=== PATIENT | female | born 1945 | race Caucasian/White ===

== ENCOUNTER 2018-09-07 16:59 | Emergency (ER) | payer MEDICARE, OTHER ==
[~2018-09-07] VITALS: Ht 157.5 cm; Wt 69.4 kg
[~2018-09-07 16:59] MED LIST: CEFUROXIME500 MG PO; CHERATUSSIN AC118 ML PO; CLONAZEPAM0.5 MG PO; DOXYCYCLINE HY100 M3 PO; FLUOXETINE HCL20 MG PO; GABAPENTIN100 MG PO; HYDROCHLOROTHIA25 MG PO; LEVOFLOXACIN500 MG PO; LISINOPRIL10 MG PO; METHYLPREDNISOLO4 M1 PO; NORCO 5-325 TA1 EACH PO; PEPCID20 MG PO; PREDNISONE20 MG PO; PROAIR HFA INH8.5 GM INH; SYMBICORT 16010.2 GM INH
--- OUTSIDE RECORDS SUMMARY | 2018-09-07 17:02 | XMS REPORT | Clinical Summary ---
Author Author [facility] Address Unknown Phone Unavailable Care Team Providers Care Deckhand Clam Dredge Name Role Phone Asked, No Pcp PCP Unavailable Allergies Not on File Medications Not on file Active Problems Not on file Social History Date Tobacco Use Types Packs/Day Years Used Never Assessed Sex Assigned at Date Recorded Not on file Industry Job Start Date Occupation Not on file Not on file Not on file Travel End Travel History Travel Start No recent travel history available. Last Filed Vital Signs Not on file Plan of Treatment Health Maintenance Due Date Last Done Comments BREAST CANCER SCREENING 1997 COLON CANCER SCREENING 1997 SHINGRIX VACCINE (1 of 2) 1997 ZOSTER VACCINE 2007 PNEUMOCOCCAL 2012 POLYSACCHARIDE VACCINE AGE 65 AND OVER PNEUMOCOCCAL-13 2012 INFLUENZA VACCINE 05/20/2018 Results Not on fileafter 09/06/2017 Insurance Payer Benefit Subscriber ID Type Phone Address Plan / Group MEDICARE MEDICARE xxxxxxxxxx Medicare [place], [place] PART A AND B [employer] xxxxxxxxxx Commercial [employer] [address] (Home) [address] [place] [address] Advance Directives Patient has advance care planning documents on file. For more information, irene lanier contact: Brent Hdz [address] [place] [address]
[2018-09-07] MEDS ORDERED: SODIUM CHLORIDE 0.9% 1000ML 1,000 ML IV SCH ×2 (17:30→17:45)
== END 2018-09-07 19:05 | disposition home or self-care (01) ==
LOC: FSED 16:59
DX: R11.2 Nausea with vomiting, unspecified (principal); R19.7 Diarrhea, unspecified; I10 Essential (primary) hypertension; E78.5 Hyperlipidemia, unspecified; J44.9 Chronic obstructive pulmonary disease, unspecified; Z87.891 Personal history of nicotine dependence
CPT/HCPCS: 80048; 99283

== ENCOUNTER 2019-11-29 19:00 | Observation (INO) | payer MEDICARE, OTHER ==
[~2019-11-29] VITALS: Ht 154.9 cm; Wt 80.9 kg
--- OUTSIDE RECORDS SUMMARY | 2019-11-29 19:03 | XMS REPORT ---
Author Author [facility] Address Unknown Phone Unavailable Care Team Providers Care Underwriting Support Manager Name Role Phone Unavailable Unavailable Payers Payer Name Policy Type Policy Number Effective Date Expiration Date Problems This patient has no known problems. Allergies, Adverse Reactions, Alerts Allergy Name Allergy Type Status Severity Reaction(s) Onset Date Inactive Date Treating Clinician Comments No Known Allergies DA Active U 2018-12-09 00:00:00 No Known Allergies DA Active U 2018-11-03 00:00:00 Medications This patient has no known medications. Results Test Description Test Time Test Comments Text Results Atomic Results Result Comments BASIC METABOLIC PANEL 2018-12-12 05:44:00 SODIUM (test code=NA) 138 mEq/L 134-147 POTASSIUM (test code=K) 4.1 mEq/L 3.4-5.0 CHLORIDE (test code=CL) 102 mEq/L 100-108 CARBON DIOXIDE (test code=CO2) 31 mEq/L 21-33 ANION GAP (test code=GAP) 9 0-20 GLUCOSE (test code=GLU) 103 mg/dL 70-110 BLOOD UREA NITROGEN (test code=BUN) 18 mg/dL 7-18 GLOMERULAR FILTRATION RATE (test code=GFR) 54.7 70-80 Units of measure=ml/min/1.73 m2 CREATININE (test code=CREAT) 1.0 mg/dL 0.6-1.3 CALCIUM (test code=CA) 8.8 mg/dL 8.0-10.5 - XR CHEST 1 [id number] 16:28:00 FAX: Andrade Morocho [phone] [place]: St: ADM FAX: Aleksandr Canales MD [phone] FAX: Tha Sheets DO [phone] Name: [facility]IN [facility] : 1945 Age/S: 73/F [address] [place] [address] Blvd Unit #: [id number] Loc: G.[address] [place] [address] Phys: Andrade Spencer MD Acct: [id number] Dis Date: Status: ADM IN ONE #: [phone] Exam Date: 12/11/2018 1614 FAX #: [phone] Reason: dyspnea EXAMS: CPT CODE: [id number] XR CHEST 1 V 87629 Clinical Indic ation: dyspnea Comparison: None FINDINGS: The frontal chest radiograph shows normal lung volumes. Bilateral peribronch ial cuffing is present. Diffuse opacity is seen in the lower lungs. No p neumothorax is present. The heart is normal in size. The trachea i s midline. There are no clinically significant osseous abnormalit ies noted. IMPRESSION: 1. Bilateral peribronchial cuffi ng, can be seen with small airway disease. 2. Diffuse opacity in the lower lungs. Differential includes pulmonary edema, atelectasis and focal consolidation. SL: [id number] at 5287 Reported and signed by: Kade Carr M.D. CC: Andrade Oconnor MD; Aleksandr Canales MD; Tha Sheets DO Technologist: More Douglas, RT(R ); Cris Zuñiga, RT(R), RTT Trnnhrd Date/Time/By: 12/11/2018 (0570) : By: [email or web address] Orig Print D/T: S: 12/11/2018 (8578) PAGE 1 Signed Report COAGULATION TIME [id number] 13:08:00* Test Item Value Reference Range Comments COAGULATION TIME ACTIVATED (test code=ACT) 280 SECONDS 105-167 - XR CHEST 2 [id number] 12:11:00 FAX: Aleksandr Canales MD [phone] [place]: St: PRE FAX: Tha Sheets DO [phone] Name: [facility] : 1945 Age/S: 73/F [address] [place] [address] Unit #: [id number] Loc: [place] [address] Phys: Aleksandr Canales MD Acct: [id number] Dis Date: Status: PRE [facility] PHONE #: [phone] Exam Date: 12/09/2018 1102 FAX #: [phone] Reason: CHEST PAIN EXAMS: CPT CODE: [id number] XR CHEST 2 V 25963 EXAM: CHEST TWO VIEW HISTORY: 73-year-old female with chest pain COMPARISON: Chest radiograph 11/03/2018 FINDINGS: Mild subsegmental atelectasis/scarring in the mid right lung and left lower lung. Lungs are otherwise clear. The cardiomediastinal silhouette is normal for projection. Aortic calcifications. No acute osseous abnormality. IMPRESSION: 1. Mild subsegmental atelectasis/scarring. SL: [id number] at 1211 Reported and signed by: Wolfgang Zazueta M.D. CC: Aleksandr Canales MD; Tha Sheets DO Technologist: RT Davon(R) Lacie Date/Time/By: 12/09/2018 (8475) : By: [email or web address] Orig Print D/T: S: 12/09/2018 (8644) PAGE 1 Signed Report PROTHROMBIN TIME 2018-12-09 10:48:00* Test Item Value Reference Range Comments PROTHROMBIN TIME PATIENT (test code=PTP) 10.5 SECONDS 9.3-12.9 INTERNATIONAL NORMAL RATIO (test code=INR) 1.0 0.8-1.2 TARGET INR BY INDICATION Indication INR1. Prophylaxis of venous thrombosis 2.0 - 3.0 (orthopedic surgery), Prophylaxis of venous thrombosis (other than high-risk surgery), Treatment of Deep Vein Thrombosis/Pulmonary Embolism, Prevention of systemic embolism - Tissue heart valves, Acute Myocardial Infarction (to prevent systemic embolism), Valvular heart disease, Atrial Fibrillation, Bileaflet mechanical valve in aortic position.2. Mechanical prosthetic valves (high risk), 2.5 - 3.5 Presence of Lupus Anticoagulant or Antiphospholipid Antibodies, Prevention of systemic embolism - Acute Myocardial Infarction (to prevent recurrent infarct). THROMBOPLASTIN TIME [id number] 10:48:00* Test Item Value Reference Range Comments THROMBOPLASTIN TIME PARTIAL (test code=PTT) 27.7 Seconds 25.0-39.5 Therapeutic Range: 61.8-83.8 Sec Effective 11/17/2013 BASIC METABOLIC [id number] 10:07:00* Test Item Value Reference Range Comments SODIUM (test code=NA) 140 mEq/L 134-147 POTASSIUM (test code=K) 4.6 mEq/L 3.4-5.0 CHLORIDE (test code=CL) 106 mEq/L 100-108 CARBON DIOXIDE (test code=CO2) 31 mEq/L 21-33 ANION GAP (test code=GAP) 8 0-20 GLUCOSE (test code=GLU) 90 mg/dL 70-110 BLOOD UREA NITROGEN (test code=BUN) 17 mg/dL 7-18 GLOMERULAR FILTRATION RATE (test code=GFR) 82.5 70-80 Units of measure=ml/min/1.73 m2 CREATININE (test code=CREAT) 0.7 mg/dL 0.6-1.3 CALCIUM (test code=CA) 9.0 mg/dL 8.0-10.5 CBC W/AUTO [id number] 10:01:00* Test Item Value Reference Range Comments WHITE BLOOD CELL (test code=WBC) 5.68 x10 3/uL 4.5-11.0 RED BLOOD CELL (test code=RBC) 4.11 x10 6/uL 3.54-5.02 HEMOGLOBIN (test code=HGB) 11.9 g/dL 11.0-15.0 HEMATOCRIT (test code=HCT) 38.3 % 33.0-45.0 MEAN CELL VOLUME (test code=MCV) 93.2 fL 81.0-99.0 MEAN CELL HGB (test code=MCH) 29.0 pg 27.0-33.0 MEAN CELL HGB CONCETRATION (test code=MCHC) 31.1 g/dL 33.0-37.0 RED CELL DISTRIBUTION WIDTH CV (test code=RDW) 14.6 % 11.5-14.5 RED CELL DISTRIBUTION WIDTH SD (test code=RDW-SD) 50.1 fL 37.0-54.0 PLATELET COUNT (test code=PLT) 307 x10 3/uL 150-400 MEAN PLATELET VOLUME (test code=MPV) 10.1 fL 7.0-9.0 NEUTROPHIL % (test code=NT%) 56.7 % 56.0-77.0 IMMATURE GRANULOCYTE % (test code=IG%) 0.2 % 0.0-2.0 LYMPHOCYTE % (test code=LY%) 21.5 % 14.0-32.0 MONOCYTE % (test code=MO%) 18.3 % 4.8-9.0 EOSINOPHIL % (test code=EO%) 2.8 % 0.3-3.7 BASOPHIL % (test code=BA%) 0.5 % 0.0-2.0 NUCLEATED RBC % (test code=NRBC%) 0.0 % 0-0 NEUTROPHIL # (test code=NT#) 3.22 x10 3/uL 2.0-7.6 IMMATURE GRANULOCYTE # (test code=IG#) 0.01 x10 3/uL 0.00-0.03 LYMPHOCYTE # (test code=LY#) 1.22 x10 3/uL 1.0-3.8 MONOCYTE # (test code=MO#) 1.04 x10 3/uL 0.1-0.8 EOSINOPHIL # (test code=EO#) 0.16 x10 3/uL 0.0-0.2 BASOPHIL # (test code=BA#) 0.03 x10 3/uL 0.0-0.2 NUCLEATED RBC # (test code=NRBC#) 0.00 x10 3/uL 0.0-0.1 MANUAL DIFF REQUIRED (test code=MDIFF) NO
[2019-11-29] MEDS ORDERED: ALPRAZOLAM 0.25 MG TAB ONE (20:08)
[2019-11-29] MEDS ORDERED: ALPRAZOLAM 0.25 MG TAB PO ONE (20:15)
--- NOTE | 2019-11-29 20:50 | Diagnostic Imaging Report ---
EXAMINATION: CXR 2 VIEW - HOPD INDICATION: ^shortness of breath ^[id number] ^2014 COMPARISON: None available FINDINGS: PA and lateral views TUBES and LINES: None. LUNGS: Lungs are well inflated. Mild central vascular congestion and suspected mild images show edema. Increased left lower lung field haziness. PLEURA: No significant pleural effusion or pneumothorax. HEART AND MEDIASTINUM: The cardiomediastinal silhouette is unremarkable. Aorta is mildly calcified and tortuous. BONES AND SOFT TISSUES: No acute osseous lesion. Soft tissues are unremarkable. UPPER ABDOMEN: No free air under the diaphragm. IMPRESSION: Mild central vascular congestion and suspected mild interstitial edema. Increased left lower lung field haziness, probably prominent cardiac fat pad. Underlying/developing pneumonia cannot be entirely excluded in the appropriate clinical context. Signed by: Dr. Kevin Caputo MD on 11/29/2019 8:48 PM
[2019-11-29] MEDS ORDERED: POTASSIUM CHLORIDE 10MEQ EA PO ONE (21:30)
[2019-11-29] MEDS ORDERED: FUROSEMIDE INJ 10 MG/ML 2 ML VIAL IV ONE (21:30)
[2019-11-29] MEDS ORDERED: FAMOTIDINE 20 MG/2 ML VIAL IV STA (21:55)
[2019-11-29] MEDS ORDERED: ASPIRIN 81 MG CHEW TAB PO ONE (22:00)
[2019-11-29] MEDS ORDERED: ONDANSETRON HCL INJ 2MG/ML 2ML 2 MG/ML VIAL IV PRN (22:00)
[2019-11-29] MEDS ORDERED: SODIUM CHLORIDE FLUSH 10 ML SYR INJ PRN (22:00)
[2019-11-29] MEDS ORDERED: FUROSEMIDE INJ 10 MG/ML 4 ML VIAL ONE (22:05)
[2019-11-29] MEDS ORDERED: POTASSIUM CHLORIDE 20 MEQ TAB CR PO ONE (22:05)
[2019-11-30] VITALS (9 sets, daily range): BP systolic 109–155; BP diastolic 64–82
[2019-11-30 05:17] LABS: BASOPHILS % 0.5 % (0.0-1.0); EOSINOPHILS # (AUTO) 0.1 (0.0-0.4); EOSINOPHILS % 1.4 % (0.0-6.0); HEMATOCRIT 38.3 % (34.2-44.1); HEMOGLOBIN 12.3 g/dL (12.0-16.0); LYMPHOCYTES # (AUTO) 1.6 (1.0-3.2); LYMPHOCYTES % 19.6 % (18.0-39.1); MEAN CORPUSCULAR HEMOGLOBIN 30.3 pg (28-32); MEAN CORPUSCULAR HGB CONC 32.1 g/dL (31-35); MEAN CORPUSCULAR VOLUME 94.3 fL (81-99); MONOCYTES # (AUTO) 1.2 (0.2-0.8); MONOCYTES % 15.1 % (4.4-11.3); NEUTROPHILS % 63.1 % (38.7-80.0); PLATELET COUNT 241 x10e3/uL (140-360); RED BLOOD COUNT 4.06 x10e6/uL (3.6-5.1)
[2019-11-30] MEDS ORDERED: ASPIR-LOW81 MG (05:39)
[2019-11-30] MEDS ORDERED: VITAMIN D34000 UNIT PO (05:39)
[2019-11-30] MEDS ORDERED: SPIRIVA18 MCG INH (05:39)
[2019-11-30] MEDS ORDERED: METOPROLOL SUCC25 MG (05:39)
[2019-11-30] MEDS ORDERED: PRAVASTATIN SOD10 MG (05:39)
[2019-11-30 05:41] LABS: ALBUMIN 3.7 g/dL (3.5-5.0); CALCIUM 9.6 mg/dL (8.4-10.2); CREATININE, SERUM 0.97 mg/dL (0.57-1.11); MAGNESIUM 1.9 MG/DL (1.3-2.1)
[2019-11-30 05:42] LABS: ALBUMIN/GLOBULIN RATIO 1.2 (0.8-2.0)
[2019-11-30 06:01] LABS: CREATINE KINASE MB 7.9 ng/mL (0-5.0)
--- NOTE | 2019-11-30 07:00 | NUR ---
BEDSIDE SHIFT REPORT RECEIVED FROM THE EDGE INKER RN. EDUCATED PT ABOUT FALL PRECAUTIONS. CALL LIGHT WITH IN EASY REACH. INSTRUCTED PT TO USE CALL LIGHT FOR ALL THE NEEDS. PT VERBALIZED UNDERSTANDING. BED IS LOW AND LOCKED. SIDE RAILS X2. PT DENIES NEEDS AT THIS TIME.
--- NOTE | 2019-11-30 08:00 | NUR ---
HOME MEDS WITH PT. EDUCATED PT ABOUT HOSPITAL POLICY REGARDING HOME MEDS.
--- NOTE | 2019-11-30 09:00 | NUR ---
PT C/O ANXIETY. PAGED DR. EMMANUEL OFFICE. GOT NEW ORDER FOR ATIVAN.
[2019-11-30] MEDS: ASPIRIN 81 MG ENTERIC COATED PO SCH (09:10)
[2019-11-30] MEDS ORDERED: LORAZEPAM 0.5 MG TAB PO ONE (10:15)
[2019-11-30] MEDS: LORAZEPAM 0.5 MG TAB PO PRN (17:22)
--- NOTE | 2019-11-30 19:00 | NUR ---
RECEIVED PATIENT IN BEDSIDE SHIFT REPORT. PATIENT A&OX3. NO PAIN REPORTED. REPORTS ANXIETY HAS LESSENED SINCE RECEIVING LAST PRN MEDICATION. NO S&S OF DISTRESS NOTED. BED LOCKED IN LOWEST POSITION, SIDE RAILS UPX2, CALL LIGHT IN REACH.
--- NOTE | 2019-11-30 19:00 | NUR ---
BEDSIDE SHIFT REPORT GIVEN TO THE GAS DISTRIBUTION PLANT OPERATOR RN. PT DENIED FURTHER NEEDS.
[2019-11-30] MEDS ORDERED: ALBUTEROL0.63 MG/3 (21:37)
--- NOTE | 2019-11-30 21:58 | NUR ---
SPOKE WITH BRAYAN EVANS ABOUT PATIENTS HOME MEDS, NEW ORDERS RECEIVED.
[2019-11-30] MEDS ORDERED: ALBUTEROL SULF 0.083% NEB SOLN 3 ML NEB INH PRN (22:00)
[2019-12-01] VITALS: BP 123/64
--- NOTE | 2019-12-01 02:27 | Consultation ---
DATE OF CONSULTATION: 11/30/2019 Cardiology Consultation REASON FOR CONSULTATION: Chest pain. HISTORY OF PRESENT ILLNESS: This is a 74-year-old woman with history of coronary artery disease, status post PCI of the LAD April of 2019, congestive heart failure, hypertension, hyperlipidemia, COPD on home O2, who presents with complaints of chest pain and shortness of breath. The patient indicates that she had a close neighbor yesterday unexpectedly. She indicates the situation was extremely stressful. Upon returning to her home yesterday afternoon, she had chest tightness with shortness of breath, nausea and diaphoresis with radiation to her right arm. The pain was probably 4/10 in severity in lasted hours. Given her symptoms, she presented to the ER for further evaluation. The patient notes intermittent edema as well as dyspnea on exertion for the last week. REVIEW OF SYSTEMS: Negative except as per HPI. PAST MEDICAL HISTORY: 1. Coronary artery disease, status post PCI of the LAD at [facility] April of 2019. 2. Congestive heart failure. 3. Hypertension. 4. Hyperlipidemia. 5. COPD on home O2. PAST SURGICAL HISTORY: section, cholecystectomy, knee surgery. ALLERGIES: PLEASE SEE EMR. MEDICATIONS: Please see medication list. SOCIAL HISTORY: Smoked a pack a day for 50 years, quit two years ago. No alcohol or drugs. FAMILY HISTORY: Pertinent for extensive family history of heart disease including in both parents and sister. PHYSICAL EXAMINATION: VITAL SIGNS: Temperature 97.9 degrees, pulse 70, respiratory rate 18, blood pressure 109/74, and oxygen saturation 96% on room air. GENERAL: Awake, alert, well-developed, well-nourished, obese woman, no acute distress. HEENT: Normocephalic, atraumatic. Pupils equal. No scleral icterus. NECK: Supple. No thyroid or cervical lymphadenopathy. No carotid bruits. LUNGS: Clear to auscultation bilaterally. No wheezes or crackles. CARDIOVASCULAR: Normal rate regular rhythm. Systolic murmur. Normal S1, S2. ABDOMEN: Soft, nontender. EXTREMITIES: No edema. NEUROLOGIC: Nonfocal. SKIN: Dry, intact. Varicose veins appreciated bilaterally. LABORATORY DATA: Sodium 140, potassium 4, chloride 101, CO2 of 27, BUN 8, and creatinine 0.97. Troponin 0.176. WBC 7.99, hemoglobin 12.3, hematocrit 38.3, platelets 241. EKG, normal sinus rhythm, left bundle-branch block. Chest x-ray reviewed. IMPRESSION: 1. Chest pain. 2. Shortness of breath. 3. Severe systolic heart failure. 4. Coronary artery disease, status post percutaneous coronary intervention April of 2019. 5. Hypertension. 6. Hyperlipidemia. 7. Chronic obstructive pulmonary disease, on home O2. RECOMMENDATIONS: The patient has ruled out for myocardial infarction with serial cardiac biomarkers. Echocardiogram revealed severe systolic heart failure with EF in the 20s. As the patient has never had discussion regarding ICD, suspect this is a new drop in EF possibly related Takotsubo cardiomyopathy given recent events, check BNP. The patient will be started on optimal medical therapy and we will attempt to obtain records from [facility]. If she has no significant stenosis remaining, she can be discharged home to follow up with her outpatient cafe associate for further evaluation. Monitor on telemetry while admit. Thank you for this consult. We will continue to follow. Joi Kapoor MD ABS/HARJINDER /[id number] MTDHarris
[2019-12-01] MEDS: LORAZEPAM 0.5 MG TAB PO PRN ×2 (02:46→11:47)
[2019-12-01 04:00] VITALS: BP 147/68
[2019-12-01 05:24] LABS: BASOPHILS % 0.5 % (0.0-1.0); EOSINOPHILS # (AUTO) 0.2 (0.0-0.4); EOSINOPHILS % 2.4 % (0.0-6.0); HEMATOCRIT 36.5 % (34.2-44.1); HEMOGLOBIN 11.9 g/dL (12.0-16.0); LYMPHOCYTES # (AUTO) 1.5 (1.0-3.2); LYMPHOCYTES % 21.9 % (18.0-39.1); MEAN CORPUSCULAR HEMOGLOBIN 30.1 pg (28-32); MEAN CORPUSCULAR HGB CONC 32.6 g/dL (31-35); MEAN CORPUSCULAR VOLUME 92.4 fL (81-99); MONOCYTES # (AUTO) 0.9 (0.2-0.8); MONOCYTES % 13.3 % (4.4-11.3); NEUTROPHILS # (AUTO) 4.1 (2.1-6.9); NEUTROPHILS % 61.7 % (38.7-80.0); PLATELET COUNT 235 x10e3/uL (140-360); RED BLOOD COUNT 3.95 x10e6/uL (3.6-5.1); RED CELL DISTRIBUTION WIDTH 13.9 % (11.7-14.4)
[2019-12-01 05:42] LABS: ANION GAP 16.8 mmol/L (8-16); BLOOD UREA NITROGEN 11 mg/dL (7-26); BUN/CREATININE RATIO 14 (6-25); CALCIUM 9.3 mg/dL (8.4-10.2); CARBON DIOXIDE 23 mmol/L (22-29); CHLORIDE 104 mmol/L (98-107); EST GLOMERULAR FILTRATION RATE > 60 ML/MIN (60-); GLUCOSE 106 mg/dL (74-118); POTASSIUM 3.8 mmol/L (3.5-5.1); SODIUM 140 mmol/L (136-145)
--- NOTE | 2019-12-01 07:00 | NUR ---
BEDSIDE SHIFT REPORT RECEIVED FROM THE COMPUTER FORENSICS EXAMINER RN. EDUCATED PT ABOUT FALL PRECAUTIONS. CALL LIGHT WITH IN EASY REACH. INSTRUCTED PT TO USE CALL LIGHT FOR ALL THE NEEDS. PT VERBALIZED UNDERSTANDING. BED IS LOW AND LOCKED. SIDE RAILS X2. PT DENIES NEEDS AT THIS TIME.
[2019-12-01 07:49] VITALS: BP 108/61
[2019-12-01 07:55] VITALS: BP 108/61
[2019-12-01] MEDS: ASPIRIN 81 MG ENTERIC COATED PO SCH (08:30)
[2019-12-01] MEDS: METOPROLOL SUCCINATE 25 MG TAB XL PO SCH ×2 (08:30→17:20)
[2019-12-01 11:54] VITALS: BP 119/60
[2019-12-01] MEDS ORDERED: CLONAZEPAM0.5 M1 PO (15:40)
[2019-12-01 15:48] VITALS: BP 121/58
--- NOTE | 2019-12-01 16:23 | NUR ---
PT USE PORTABLE OXYGEN TANK AND NEEDS TO USE ON THE WAY HOME PER MARSHAL SCHMIDT. PT OXYGEN TANK EMPTY AT THIS MOMENT PER THE PT. INFORMED THE SAME TO SESSIONS CLERK. PT WILL CALL THE COMPANY TO DELIVER O2 AT THE HOSPITAL.
--- NOTE | 2019-12-01 17:09 | NUR ---
Spoke to pt at bedside regarding O2 for transport home. Pt's portable tank at bedside is empty. Pt states she has more tanks at home and her friend will bring it to the hospital for her for ride home.
--- NOTE | 2019-12-01 18:05 | NUR ---
PT FRIEND AT BEDSIDE. BROUGHT PORTABLE OXYGEN FROM PT HOME.
--- NOTE | 2019-12-01 18:15 | NUR ---
PT DISCHARGED HOME SAFELY WITH HER FRIENDS. PORTABLE O2 PRESENT. TELEMETRY AND IV REMOVED, TIP INTACT. DRESSING APPLIED. RX GIVEN. DISCHARGE INSTRUCTIONS GIVEN AND PATIENT VERBALIZED UNDERSTANDING. PT ESCORTED VIA WHEEL CHAIR TO THE PRIVATE AUTO AT THE FRONT ENTRANCE BY THE TECH. PT DENIED FURTHER NEEDS.
--- NOTE | 2019-12-01 19:26 | Progress Note ---
DATE: 12/01/2019 Cardiology Progress Note SUBJECTIVE: The patient denies chest pain or shortness of breath. OBJECTIVE: VITAL SIGNS: Temperature 96.9 degrees, pulse 77, respiratory rate 18, blood pressure 118/60, and oxygen saturation 99% on 3 L nasal cannula. GENERAL: Awake, alert, in no acute distress. LUNGS: Clear to auscultation bilaterally. No wheezes or crackles. CARDIOVASCULAR: Normal rate. Regular rhythm. Systolic murmur. Normal S1 and S2. ABDOMEN: Soft and nontender. EXTREMITIES: No edema. CARDIAC MEDICATIONS: Metoprolol succinate 25 mg p.o. b.i.d. and aspirin 81 mg p.o. daily. LABORATORY DATA: WBC 6.61, hemoglobin 11.9, hematocrit 36.5, and platelets 235. Sodium 140, potassium 3.8, chloride 104, CO2 23, BUN 11, and creatinine 0.8. TELEMETRY: Normal sinus rhythm. IMPRESSION: 1. Chest pain. 2. Shortness of breath. 3. Severe systolic heart failure. 4. Coronary artery disease, status post PCI in April 2019. 5. Hypertension. 6. Hyperlipidemia. 7. Chronic obstructive pulmonary disease, on home O2. RECOMMENDATIONS: The patient ruled out for myocardial infarction with serial cardiac biomarkers. Echocardiogram revealed severe systolic heart failure with EF in the 20s. Suspect this is Takotsubo cardiomyopathy given recent of a close neighbor versus worsening of her heart failure. Initiate the patient on optimal medical therapy. As she is currently symptom-free, she can follow up with her outpatient assistant professor of life sciences for further evaluation. Thank you for this consult. We will continue to follow. Joi Kapoor MD ABS/MODL /[id number]
--- NOTE | 2019-12-02 14:01 | Discharge Summary ---
PERTINENT HISTORY AND PHYSICAL FINDINGS: The patient states that she complained of chest pressure, not chest pain on admission, also had palpitations. She is a 74-year-old female with past medical history of hypertension, coronary artery disease status post PCI of the LAD in April 2019, congestive heart failure, hypertension, hyperlipidemia, COPD on home oxygen at 3 L/minute via nasal cannula that presented with aforementioned chest pressure and shortness of breath. The patient indicated that she had a close neighbor, who on November 29 a day before yesterday unexpectedly. She indicated that the situation was extremely stressful. Upon returning to her house yesterday afternoon, she had a chest tightness or pressure with shortness of breath, nausea and diaphoresis with radiation to the right arm. The pain was probably 4/10 in severity and lasted several hours. Given her symptoms, she presented to the ER for further evaluation. The patient noted intermittent edema as well as dyspnea on exertion for the past week. PAST MEDICAL HISTORY: As per history of present illness. PAST SURGICAL HISTORY: , cholecystectomy, left knee surgery. FAMILY HISTORY: Pertinent for extensive family history of heart disease including both parents and sister. SOCIAL HISTORY: Smoked a pack a day for 50 years, but quit two years ago. No alcohol or drugs. She does use oxygen at 3 L/minute via nasal cannula at home. Her outpatient materials management clerk is Dr. Sauceda? She does not know the materials management clerk last name. On admission vital signs were stable. BUN 8, creatinine 0.97. Troponin 0.176. EKG with normal sinus rhythm, left bundle branch block. Per materials management clerk's note, the patient was ruled out for myocardial infarction with serial cardiac biomarkers. Echocardiogram revealed severe systolic congestive heart failure with an ejection fraction in the 20s. The patient never had a discussion regarding ICD. B type nitrate peptide 216.3. ADMITTING DIAGNOSES: 1. Chest pain, rule out myocardial infarction. 2. Acute on chronic systolic congestive heart failure. 3. Chronic obstructive pulmonary disease with oxygen dependence without exacerbation. 4. Asthma without exacerbation, essential hypertension. DISCHARGE DIAGNOSES: 1. Chest pain, rule out myocardial infarction. 2. Acute on chronic systolic congestive heart failure. 3. Chronic obstructive pulmonary disease with oxygen dependence without exacerbation. 4. Asthma without exacerbation, essential hypertension. The patient has a portable oxygen tank that is quarter of the way full, she states she will use that for the quarter of a mile drive home. For her anxiety, we will give her prescription for clonazepam 0.5 mg b.i.d. p.r.n. The patient has follow up with Dr. Sheets, her PCP. Continue Lasix 20 mg p.r.n. at home. Continue home medications. Follow up with PCP and outpatient materials management clerk in 1-2 weeks. Activity level as tolerated. Cardiac diet. Dictated by Denzel Monroe NP MD NINO Amador/MODL /[id number]
== END 2019-12-01 18:15 | disposition home or self-care (01) ==
LOC: FSED 19:00 → ERHOLD 22:03 → MED/SURG2 23:02
PROVIDERS: ADMIT Internal Medicine; ATTEND Internal Medicine
DX: I11.0 Hypertensive heart disease with heart failure (principal); I50.21 Acute systolic (congestive) heart failure; J44.9 Chronic obstructive pulmonary disease, unspecified; I25.10 Atherosclerotic heart disease of native coronary artery without angina pectoris; Z95.5 Presence of coronary angioplasty implant and graft; I25.2 Old myocardial infarction; Z99.81 Dependence on supplemental oxygen; I69.851 Hemiplegia and hemiparesis following other cerebrovascular disease affecting right dominant side; Z87.891 Personal history of nicotine dependence; E78.5 Hyperlipidemia, unspecified; Z82.49 Family history of ischemic heart disease and other diseases of the circulatory system; Z90.49 Acquired absence of other specified parts of digestive tract; F41.9 Anxiety disorder, unspecified
CPT/HCPCS: 36415 ×2; 71046; 80048; 80053 ×2; 80061; 81003; 82550; 82553 ×2; 83735; 83880 ×2; 84484 ×2; 85025 ×3; 93005; 93306; 94640; 99284; G0378 ×3; J1940